=== PATIENT | female | born 1975 | race Caucasian/White ===

== ENCOUNTER 2023-07-20 23:52 | Emergency (ER) | payer MEDICAID ==
[~2023-07-20] VITALS: Ht 170.2 cm; Wt 73.0 kg
[2023-07-20 23:54] VITALS: BP 120/94; PULSE 100; TEMP 97.7; O2SAT 99
[2023-07-21] MEDS ORDERED: AMOX-117 PO (00:34)
[2023-07-21] MEDS ORDERED: LIDOcaine 1% 30ml preserv. free vial IJ ONE (01:15)
[2023-07-21] MEDS ORDERED: ketorolac tromethamine 15mg/ml inj. IM ONE (01:35)
[2023-07-21] MEDS ORDERED: IBUP-1984 PO (01:35)
[2023-07-21] MEDS ORDERED: ketorolac trometh. 30mg/ml inj. IM ONE (01:40)
[2023-07-21 01:49] VITALS: RESP 18
== END 2023-07-21 02:07 | disposition home or self-care (01) ==
LOC: ER 23:53
DX: S81.811A Laceration without foreign body, right lower leg, initial encounter (principal); W54.0XXA Bitten by dog, initial encounter; Y93.89 Activity, other specified; Y92.89 Other specified places as the place of occurrence of the external cause; Y99.8 Other external cause status
CPT/HCPCS: 12001; 96372; 99283; J1885; A6449